=== PATIENT | male | born 1985 | race Caucasian/White ===

== ENCOUNTER 2024-07-31 12:53 | Emergency (ER) | payer MEDICAID ==
[~2024-07-31] VITALS: Ht 177.8 cm; Wt 90.7 kg
[2024-07-31 13:21] VITALS: BP 140/79; TEMP 98.7
[2024-07-31] MEDS ORDERED: AMOX-430 PO (14:02)
[2024-07-31] MEDS ORDERED: IBUP-1955 PO (14:02)
[2024-07-31 14:05] VITALS: O2SAT 96
== END 2024-07-31 14:06 | disposition home or self-care (01) ==
LOC: ER 12:59
DX: J32.9 Chronic sinusitis, unspecified (principal)